=== PATIENT | male | born 1935 | race Caucasian/White ===

== ENCOUNTER → 2021-04-22 | Outpatient (CLI) | payer MEDICARE, BC ==
[2021-04-22 12:10] LABS: BASO # 0.1 x10^3/uL (0.0-0.2); BASO % 0 % (0-3); EOS # 0.2 x10^3/uL (0.0-0.7); EOS % 2 % (0-3); HEMATOCRIT 39.4 % (39.0-53.0); LYMPH # 1.1 x10^3/uL (1.0-4.8); LYMPH % 10 % (24-48); MEAN CORPUSCULAR HEMOGLOBIN 35 pg (25-35); MEAN CORPUSCULAR HGB CONC 33 g/dL (31-37); MEAN CORPUSCULAR VOLUME 105 fL (79-100); MONO # 1.4 x10^3/uL (0.0-1.1); MONO % 12 % (0-9); NEUT # 8.8 x10^3uL (1.8-7.7); NEUT % 76 % (31-73); PLATELET COUNT 276 x10^3/uL (140-400); RED BLOOD COUNT 3.75 x10^6/uL (4.30-5.70); RED CELL DISTRIBUTION WIDTH 13.4 % (11.5-14.5); WHITE BLOOD COUNT 11.5 x10^3/uL (4.0-11.0)
[2021-04-22 14:43] LABS: TOTAL PROTEIN 6.9 g/dL (6.4-8.2)
[2021-04-22 14:44] LABS: ALBUMIN 3.4 g/dL (3.4-5.0); CALCIUM 8.6 mg/dL (8.5-10.1); GFR 70.7; TOTAL BILIRUBIN 0.4 mg/dL (0.2-1.0)
== END ==
LOC: LAB 10:56
PROVIDERS: ATTEND Internal Medicine Rheumatology
DX: M06.4 Inflammatory polyarthropathy (principal); Z79.899 Other long term (current) drug therapy
CPT/HCPCS: 36415; 80053; 85025

== ENCOUNTER → 2021-07-23 | Outpatient (CLI) | payer MEDICARE, BC ==
[2021-07-23 10:55] LABS: BASO % 1 % (0-3); EOS # 0.1 x10^3/uL (0.0-0.7); EOS % 1 % (0-3); HEMATOCRIT 38.9 % (39.0-53.0); LYMPH % 11 % (24-48); MEAN CORPUSCULAR HEMOGLOBIN 36 pg (25-35); MEAN CORPUSCULAR HGB CONC 33 g/dL (31-37); MEAN CORPUSCULAR VOLUME 108 fL (79-100); MONO # 1.2 x10^3/uL (0.0-1.1); MONO % 14 % (0-9); NEUT # 6.6 x10^3uL (1.8-7.7); NEUT % 73 % (31-73); PLATELET COUNT 295 x10^3/uL (140-400); RED BLOOD COUNT 3.61 x10^6/uL (4.30-5.70); RED CELL DISTRIBUTION WIDTH 12.8 % (11.5-14.5)
[2021-07-23 11:09] LABS: ALBUMIN 3.7 g/dL (3.4-5.0); ALBUMIN/GLOBULIN RATIO 1.1 (1.0-1.7); CALCIUM 8.8 mg/dL (8.5-10.1); CREATININE 1.3 mg/dL (0.7-1.3); GFR 52.2; POTASSIUM 3.8 mmol/L (3.5-5.1); TOTAL BILIRUBIN 0.5 mg/dL (0.2-1.0)
== END ==
LOC: LAB 10:09
PROVIDERS: ATTEND Internal Medicine Rheumatology
DX: M06.4 Inflammatory polyarthropathy (principal); Z79.899 Other long term (current) drug therapy
CPT/HCPCS: 36415; 80053; 85025

== ENCOUNTER → 2021-09-06 | Outpatient (CLI) | payer MEDICARE, BC ==
--- NOTE | 2021-09-06 09:27 | RAD ---
INDICATION: Reason: RUQ PAIN / Spl. Instructions: / History: COMPARISON: None. TECHNIQUE: Grayscale and color ultrasound images obtained through the abdomen. FINDINGS: Pancreas: Limited visualization secondary to overlying structures Liver: Portions of the liver not well seen secondary to overlying structures obscuring. Parenchyma ap pears mildly echogenic. Gallbladder: Removed Common Bile Duct: Not well seen secondary to overlying bowel gas. Right Kidney: Echogenic appearance with cortical thinning. Aorta/IVC: Limited by overlying bowel gas. IMPRESSION: * Limited assessment secondary to overlying structures obscuring. Common bile duct is not seen. * Liver is only partially seen but appears echogenic. Nonspecific but can be seen with fatty infiltr ation. Electronically signed by: Sunny Bradford MD (09/06/2021 9:25 AM) [id number]
== END ==
LOC: US 08:50
PROVIDERS: ATTEND Nurse Practitioner
DX: R11.10 Vomiting, unspecified (principal)
CPT/HCPCS: 76705

== ENCOUNTER → 2021-09-10 | Outpatient (CLI) | payer MEDICARE, BC ==
--- NOTE | 2021-09-10 17:18 | CARD ---
MR#: [id number] Date of Study: 09/10/2021 Ordering Physician: NATA DAMON, Referring Physician: NATA DAMON Tech: Marty Cruz [facility] APPROVED REPORT EXAM: Two-dimensional and M-mode echocardiogram with Doppler and color Doppler. Other Information Quality : FairHR: 92bpm Rhythm : NSRTechnically limited study due to pain during study. INDICATION Dyspnea 2D DIMENSIONS Left Atrium(2D)3.6 (1.6-4.0cm)IVSd1.4 (0.7-1.1cm) Aortic Root(2D)3.9 (2.0-3.7cm)LVDd4.2 (3.9-5.9cm) LVOT Diameter2.1 (1.8-2.4cm)PWd1.4 (0.7-1.1cm) LA Mwxedx43 (18-58mL)LVDs2.8 (2.5-4.0cm) FS (%) 33.2 %SV49.9 ml LVEF(%)62.2 (>50%) Aortic Valve AoV Peak Robbie.239.9cm/sAoV VTI43.2cm AO Peak GR.23.0mmHgLVOT Peak Robbie.85.9cm/s LVOT VTI 13.66cmAO Mean GR.13mmHg TY (VMAX)1.25qf2XQR (VTI)1.11cm2 Mitral Valve MV E Ujgbqvvs74.4cm/sMV E Peak Gr.6mmHg MV DECEL [id number] A Ubykpotv54.1cm/s MV E Mean Gr.1mmHgE/A Ratio0.5 Tricuspid Valve TR P. Hsuobxmq209ep/sTR Peak Gr.33mmHg Pulmonary Vein S1 Yjqtwkog94.4cm/sD2 Iwiqwkvm40.7cm/s LEFT VENTRICLE The left ventricle is normal size. There is mild to moderate concentric left ventricular hypertrophy. The left ventricular systolic function is normal and the ejection fraction is within normal range. E F 55% Septal motion suggestive of conduction defect. Otherwise, grossly normal wall motion. Transmitr al Doppler flow pattern is Grade I-abnormal relaxation pattern. No left ventricle thrombus noted on t his study. There is no ventricular septal defect visualized. There is no left ventricular aneurysm. T here is no mass noted in the left ventricle. RIGHT VENTRICLE The right ventricle is mildly dilated. There is normal right ventricular wall thickness. The right ve ntricular systolic function is normal. ATRIA The left atrium size is normal. The right atrium size is normal. The interatrial septum is intact wit h no evidence for an atrial septal defect or patent foramen ovale as noted on 2-D or Doppler imaging. AORTIC VALVE The aortic valve is heavily calcified with restricted leaflet motion. Doppler and Color Flow revealed no significant aortic regurgitation. Calculated aortic valve area is 1.1 cm2 with maximum pressure g radient of 23 mmHg and mean pressure gradient of 13 mmHg. There is only minimal aortic stenosis by do ppler criteria, but visually, the valve appears at least moderately stenotic. There is no aortic valv ular vegetation. MITRAL VALVE The mitral valve is thickened but opens well. There is no evidence of mitral valve prolapse. There is no mitral valve stenosis. Doppler and Color-flow revealed trace mitral regurgitation. TRICUSPID VALVE The tricuspid valve is normal in structure and function. Doppler and Color Flow revealed trace tricus pid regurgitation. The PA pressure was estimated at 36 mmHg. There is no tricuspid valve prolapse or vegetation. There is no tricuspid valve stenosis. PULMONIC VALVE Doppler and Color Flow revealed no pulmonic valvular regurgitation. There is no pulmonic valvular darleen nosis. GREAT VESSELS The aortic root is mildly dilated at 3.9 cm. The ascending aorta is normal in size. The IVC is normal in size and collapses >50% with inspiration. PERICARDIAL EFFUSION There is no pleural effusion. There is no evidence of significant pericardial effusion. Critical Notification Critical Value: No <Conclusion> The left ventricular systolic function is normal and the ejection fraction is within normal range. EF 55% Septal motion suggestive of conduction defect. Otherwise, grossly normal wall motion. Calculated aortic valve area is 1.1 cm2 with maximum pressure gradient of 23 mmHg and mean pressure g radient of 13 mmHg. There is only minimal aortic stenosis by doppler criteria, but visually, the valv e appears at least moderately stenotic. Signed by : Wilbur Dyson, Electronically Approved : 09/10/2021 17:17:36
== END ==
LOC: ECHO 14:10
PROVIDERS: ATTEND Family Medicine
DX: I35.0 Nonrheumatic aortic (valve) stenosis (principal); I51.7 Cardiomegaly; R53.1 Weakness
CPT/HCPCS: 93306

== ENCOUNTER → 2021-10-21 | Outpatient (CLI) | payer MEDICARE, BC ==
[2021-10-21 11:05] LABS: BASO # 0.1 x10^3/uL (0.0-0.2); BASO % 1 % (0-3); EOS # 0.2 x10^3/uL (0.0-0.7); EOS % 2 % (0-3); HEMATOCRIT 37.6 % (39.0-53.0); HEMOGLOBIN 12.3 g/dL (13.0-17.5); LYMPH # 0.9 x10^3/uL (1.0-4.8); LYMPH % 8 % (24-48); MEAN CORPUSCULAR HEMOGLOBIN 36 pg (25-35); MEAN CORPUSCULAR HGB CONC 33 g/dL (31-37); MEAN CORPUSCULAR VOLUME 109 fL (79-100); MONO # 1.1 x10^3/uL (0.0-1.1); MONO % 10 % (0-9); NEUT # 8.6 x10^3uL (1.8-7.7); NEUT % 79 % (31-73); PLATELET COUNT 263 x10^3/uL (140-400); RED BLOOD COUNT 3.46 x10^6/uL (4.30-5.70); RED CELL DISTRIBUTION WIDTH 13.6 % (11.5-14.5); WHITE BLOOD COUNT 10.9 x10^3/uL (4.0-11.0)
[2021-10-21 11:19] LABS: ALBUMIN 3.4 g/dL (3.4-5.0); ALBUMIN/GLOBULIN RATIO 1.1 (1.0-1.7); CALCIUM 8.9 mg/dL (8.5-10.1); CREATININE 1.1 mg/dL (0.7-1.3); GFR 63.3; POTASSIUM 4.4 mmol/L (3.5-5.1); TOTAL BILIRUBIN 0.5 mg/dL (0.2-1.0); TOTAL PROTEIN 6.4 g/dL (6.4-8.2)
== END ==
LOC: LAB 10:23
PROVIDERS: ATTEND Registered Nurse
DX: M06.4 Inflammatory polyarthropathy (principal); R53.83 Other fatigue; Z79.899 Other long term (current) drug therapy
CPT/HCPCS: 36415; 80053; 82607; 82746; 85025